=== PATIENT | female | born 1960 | race Caucasian/White ===

== ENCOUNTER 2017-07-21 22:42 | Emergency (ER) | payer OTHER ==
[~2017-07-21] VITALS: Ht 157.5 cm; Wt 54.4 kg
[2017-07-21 22:50] VITALS: BP_SYST 168
[2017-07-21] MEDS ORDERED: SULFAMETHOXAZOLE/TRIMETHOPR DS 1 TABLET PO ONE (23:15)
[2017-07-21] MEDS ORDERED: ACETAMINOPHEN 500 MG TABLET PO ONE (23:15)
[2017-07-21] MEDS ORDERED: AMOXICILLIN/CLAVULANATE POTASSIUM 875 MG TABLET PO ONE (23:15)
[2017-07-21] MEDS ORDERED: BACITRACIN 1 GM OINT TP ONE (23:30)
[2017-07-21 23:55] VITALS: BP_SYST 152
== END 2017-07-21 23:55 | disposition home or self-care (01) ==
LOC: SED 22:42
DX: N61.0 Mastitis without abscess (principal)
CPT/HCPCS: 99284

== ENCOUNTER 2023-08-18 12:44 | Emergency (ER) | payer OTHER ==
[2023-08-18] MEDS ORDERED: ONDANSETRON HCL 4 MG/2 ML VIAL ONE (13:21)
[2023-08-18 14:18] LABS: ACETONE, SERUM NEGATIVE (NEGATIVE)
[2023-08-18 14:22] LABS: ALANINE AMINOTRANSFERASE 24 U/L (12-78); ANION GAP 18 (5-15); ASPARTATE AMINOTRANSFERASE 88 U/L (10-37); CARBON DIOXIDE 24 mmol/L (23-29); CHLORIDE 99 mmol/L (98-107); CREATININE 0.61 mg/dL (0.55-1.30); GFR AFRICAN AMERICAN 128 mL/min (>90); GLUCOSE 160 mg/dL (74-106); POTASSIUM 3.3 mmol/L (3.5-5.1); SODIUM SERUM 141 mmol/L (136-145); TOTAL BILIRUBIN 1.8 mg/dL (0.0-1.0); TOTAL PROTEIN, SERUM 7.1 g/dL (6.4-8.3); UREA NITROGEN, BLOOD 31 mg/dL (8-21)
[2023-08-18 14:23] LABS: BASOPHILS # (AUTO) 0.1 K/uL (0.0-0.2); BASOPHILS % (AUTO) 1.1 % (0.0-2.0); HEMATOCRIT 31.6 % (36-48); HEMOGLOBIN 10.5 g/dL (12.0-16.0); LYMPHOCYTES # (AUTO) 0.4 K/uL (1.0-5.5); LYMPHOCYTES % (AUTO) 3.5 % (20.5-51.5); MEAN CORPUSCULAR HEMOGLOBIN 33 pg (27-31); MEAN CORPUSCULAR HGB CONC 33 % (32-36); MEAN CORPUSCULAR VOLUME 99 fL (79.0-98.0); MONOCYTES # (AUTO) 0.5 K/uL (0.0-1.0); MONOCYTES % (AUTO) 4.9 % (1.7-9.3); NEUTROPHILS # (AUTO) 10.1 K/uL (1.8-7.7); NEUTROPHILS % (AUTO) 90.5 % (40.0-70.0); PLATELET COUNT (AUTO) 121 K/uL (130-430); RED CELL DISTRIBUTION WIDTH 15.2 % (9.0-15.0); WHITE BLOOD COUNT (AUTO) 11.2 K/uL (4.8-10.8)
[2023-08-18 14:25] LABS: ALCOHOL, BLOOD 66 mg/dL (<10); AMYLASE 39 U/L (0-100); CREATINE KINASE, TOTAL 42 U/L (26-192); INR 1.4 (0.8-1.2); LIPASE 23 U/L (16-77); PROTHROMBIN TIME 14.1 SECS (9.5-12.5)
[2023-08-18] MEDS ORDERED: NACL 0.9% 1,000 ML IV ONE ×2 (14:30→15:00)
[2023-08-18] MEDS ORDERED: LORazepam 2 MG/ML VIAL IVP ONE (15:00)
[2023-08-18] MEDS ORDERED: LORA-259 PO ×3 (15:07→16:50)
[2023-08-18] MEDS ORDERED: OMEP20CA15 PO ×2 (15:07→16:09)
[2023-08-18 16:42] VITALS: BP_SYST 132; PULSE 102; RESP 20; TEMP 98.3; O2SAT 97
== END 2023-08-18 16:41 | disposition home or self-care (01) ==
LOC: SED 12:44
DX: K74.60 Unspecified cirrhosis of liver (principal); K92.0 Hematemesis; F10.10 Alcohol abuse, uncomplicated; Z79.899 Other long term (current) drug therapy; Y90.3 Blood alcohol level of 60-79 mg/100 ml
CPT/HCPCS: 99285; 74176; 96374; 71045; 96361; 80076; 80048; 82009; 82150; 82550; 83690; 85025; 85610; 85730; 86886; 86900; 86901; 84484; 36415; 76376; 83605; G0482; J2060; J2405; J7030

== ENCOUNTER 2024-03-31 23:34 | Inpatient (IN) | payer BC, OTHER ==
[~2024-03-31] VITALS: Ht 160 cm; Wt 55.3 kg
[~2024-03-31 23:34] MED LIST: LORA-259 PO; OMEP20CA15 PO
[2024-03-31] MEDS: NACL 0.9% 1,000 ML IV ONE (23:54)
[2024-03-31] MEDS: PANTOPRAZOLE SODIUM 40 MG/VIAL (PROTONIX) IVP ONE (23:55)
[2024-03-31 23:57] VITALS: BP_SYST 94; PULSE 155; RESP 18; TEMP 97.8; O2SAT 96
[2024-04-01] VITALS (10 sets, daily range): BP systolic 118–161; PULSE 78–138; RESP 20–38; TEMP 97.6–100.5; O2SAT 94–98
[2024-04-01 00:53] LABS: BASOPHILS % (AUTO) 0.2 % (0.0-2.0); LYMPHOCYTES # (AUTO) 1.1 K/uL (1.0-5.5); LYMPHOCYTES % (AUTO) 5.1 % (20.5-51.5); MEAN CORPUSCULAR HEMOGLOBIN 32 pg (27-31); MEAN CORPUSCULAR HGB CONC 33 % (32-36); MEAN CORPUSCULAR VOLUME 97 fL (79.0-98.0); MONOCYTES # (AUTO) 2.8 K/uL (0.0-1.0); MONOCYTES % (AUTO) 12.3 % (1.7-9.3); NEUTROPHILS # (AUTO) 18.5 K/uL (1.8-7.7); NEUTROPHILS % (AUTO) 82.4 % (40.0-70.0); PLATELET COUNT (AUTO) 142 K/uL (130-430); RED BLOOD CELL COUNT(AUTO) 2.21 MIL/uL (4.2-6.2); RED CELL DISTRIBUTION WIDTH 17.6 % (9.0-15.0); WHITE BLOOD COUNT (AUTO) 22.4 K/uL (4.8-10.8)
[2024-04-01 00:55] LABS: HEMATOCRIT 21.4 % (36-48)
[2024-04-01 00:57] LABS: ALANINE AMINOTRANSFERASE 239 U/L (12-78); ALBUMIN 2.9 g/dL (3.4-4.8); ANION GAP 29 (5-15); ASPARTATE AMINOTRANSFERASE 608 U/L (10-37); BILIRUBIN,DIRECT 1.2 mg/dL (0.0-0.3); CALCIUM 7.7 mg/dL (8.4-11.0); CARBON DIOXIDE 13 mmol/L (23-29); CHLORIDE 94 mmol/L (98-107); CREATININE 2.89 mg/dL (0.55-1.30); GFR AFRICAN AMERICAN 21 mL/min (>90); GLUCOSE 147 mg/dL (74-106); INR 1.7 (0.8-1.2); LIPASE 93 U/L (16-77); POTASSIUM 4.6 mmol/L (3.5-5.1); SODIUM SERUM 136 mmol/L (136-145); TOTAL BILIRUBIN 2.4 mg/dL (0.0-1.0); TOTAL PROTEIN, SERUM 6.5 g/dL (6.4-8.3); UREA NITROGEN, BLOOD 40 mg/dL (8-21)
[2024-04-01 01:10] LABS: ALCOHOL, BLOOD < 3 mg/dL (<10); GFR NON AFRICAN-AMERICAN 18 mL/min (>90)
[2024-04-01] MEDS: LORazepam 2 MG/ML VIAL IVP ONE (01:41)
[2024-04-01] MEDS ORDERED: LORazepam 2 MG/ML VIAL IM PRN (01:45)
[2024-04-01] MEDS: ONDANSETRON HCL 4 MG/2 ML VIAL IVP PRN (02:17)
[2024-04-01] MEDS ORDERED: chlordiazePOXIDE HCL 25 MG CAPSULE ONE (03:00)
[2024-04-01] MEDS: NACL 0.9% 1,000 ML IV SCH (03:05)
[2024-04-01] MEDS: chlordiazePOXIDE HCL 25 MG CAPSULE PO ONE (03:08)
[2024-04-01] MEDS ORDERED: METOPROLOL TARTRATE 5 MG/5 ML VIAL ONE (06:04)
[2024-04-01 06:40] LABS: BILIRUBIN,URINE NEGATIVE (NEGATIVE); BLOOD, URINE 3+ (NEGATIVE); CLARITY/URINE SL CLOUDY (CLEAR); COLOR,URINE YELLOW (YELLOW); GLUCOSE,URINE NEGATIVE (NEGATIVE); KETONES,URINE TRACE (NEGATIVE); LEUKOCYTE ESTERASE ,URINE TRACE (NEGATIVE); NITRITE, URINE NEGATIVE (NEGATIVE); PH,URINE 6.5 (5.0-8.0); PROTEIN URINE 2+ (NEGATIVE)
[2024-04-01] MEDS: METOPROLOL TARTRATE 5 MG/5 ML VIAL IVP ONE (06:49)
[2024-04-01 07:19] LABS: BARBITURATE, URINE NEGATIVE (NEG <=200); BENZODIAZEPINE, URINE POSITIVE (NEG <=150); CANNABINOID, URINE NEGATIVE (NEG <=50); COCAINE, URINE NEGATIVE (NEG <=150); METHAMPHETAMINES SCREEN,URINE NEGATIVE (NEG <=500); OPIATE, URINE NEGATIVE (NEG <=100); PHENCYCLIDINE SCREEN,URINE NEGATIVE (NEG <=25); UR TRICYCLIC ANTIDEPRESSANTS NEGATIVE (NEG <=300); URINE AMPHETAMINE NEGATIVE (NEG <=500); URINE METHADONE NEGATIVE (NEG <=200); URINE OXYCODONE SCREEN NEGATIVE (NEG <=100)
[2024-04-01 07:49] LABS: BACTERIA,URINE MANY /HPF (None Seen)
[2024-04-01] MEDS: NS 500 ML IV ONE (08:41)
[2024-04-01] MEDS: PIPERACILLIN/TAZO 3.375 GM in NS 50 ML IV ONE (08:42)
[2024-04-01] MEDS ORDERED: PIPERACILLIN/TAZOBACTAM 3.375 GM/VIAL (ZOSYN) IV ONE (08:45)
[2024-04-01] MEDS: LORazepam 2 MG/ML VIAL IM PRN (09:00)
[2024-04-01] MEDS: PANTOPRAZOLE SODIUM 40 MG/VIAL (PROTONIX) IVP SCH ×2 (09:08→21:03)
[2024-04-01 09:21] LABS: BASOPHILS % (AUTO) 0.1 % (0.0-2.0); LYMPHOCYTES % (AUTO) 5.6 % (20.5-51.5); MEAN CORPUSCULAR HEMOGLOBIN 31 pg (27-31); MEAN CORPUSCULAR HGB CONC 33 % (32-36); MEAN CORPUSCULAR VOLUME 94 fL (79.0-98.0); MONOCYTES # (AUTO) 2.3 K/uL (0.0-1.0); MONOCYTES % (AUTO) 13.3 % (1.7-9.3); PLATELET COUNT (AUTO) 63 K/uL (130-430); RED BLOOD CELL COUNT(AUTO) 2.17 MIL/uL (4.2-6.2); RED CELL DISTRIBUTION WIDTH 16.3 % (9.0-15.0); WHITE BLOOD COUNT (AUTO) 17.2 K/uL (4.8-10.8)
[2024-04-01 09:33] LABS: HEMATOCRIT 20.4 % (36-48); HEMOGLOBIN 6.7 g/dL (12.0-16.0)
[2024-04-01 09:47] LABS: ALBUMIN 2.4 g/dL (3.4-4.8); CREATININE 2.99 mg/dL (0.55-1.30); TOTAL PROTEIN, SERUM 5.5 g/dL (6.4-8.3)
[2024-04-01] MEDS: MULTIVITAMINS TAB 1 TABLET PO SCH (09:51)
[2024-04-01 09:56] LABS: CALCIUM 6.7 mg/dL (8.4-11.0); POTASSIUM 5.8 mmol/L (3.5-5.1)
[2024-04-01 09:57] LABS: TOTAL BILIRUBIN 3.2 mg/dL (0.0-1.0)
[2024-04-01] MEDS ORDERED: CALCIUM GLUCONATE 1 GM/10 ML VIAL IVP ONE (10:15)
[2024-04-01] MEDS ORDERED: PANTOPRAZOLE SODIUM 40 MG/VIAL (PROTONIX) IVP ONE (10:30)
[2024-04-01] MEDS ORDERED: CALCIUM GLUCONATE 1 GM/10 ML VIAL IV ONE (10:30)
[2024-04-01] MEDS: INSULIN REGULAR, HUMAN 10 UNITS/0.1 ML, 3 ML VIAL IVP ONE (10:38)
[2024-04-01] MEDS: DEXTROSE 50% JECT 50 ML DISP.SYRIN IVP ONE (10:41)
[2024-04-01] MEDS: LACTULOSE 20 GM/30 ML UDC PO ONE (12:48)
[2024-04-01] MEDS: CALCIUM GLUC 1 GM/100ML-NACL 100 ML IV ONE (12:52)
[2024-04-01] MEDS: OCTREOTIDE ACETATE 1,250 MCG in NS 248.75 ML IV SCH (13:50)
[2024-04-01] MEDS: PIPERACILLIN/TAZOBACTAM 2.25 GM in D5W 50 ML IV SCH (14:00)
[2024-04-01] MEDS: chlordiazePOXIDE HCL 25 MG CAPSULE PO SCH (15:00)
[2024-04-01 19:34] LABS: ALBUMIN 2.6 g/dL (3.4-4.8); CALCIUM 7.1 mg/dL (8.4-11.0); CREATININE 2.99 mg/dL (0.55-1.30); POTASSIUM 5.3 mmol/L (3.5-5.1); TOTAL BILIRUBIN 3.7 mg/dL (0.0-1.0); TOTAL PROTEIN, SERUM 5.7 g/dL (6.4-8.3)
[2024-04-01] MEDS: LACTULOSE 20 GM/30 ML UDC PO SCH (21:00)
[2024-04-01] MEDS: PIPERACILLIN/TAZOBACTAM 3.375 GM/VIAL (ZOSYN) IV ONE (22:41)
[2024-04-01] MEDS: PIPERACILLIN/TAZOBACTAM 2.25 GM VIAL IV ONE (23:56)
[2024-04-02] VITALS (23 sets, daily range): BP systolic 125–170; PULSE 95–134; RESP 16–31; TEMP 98.4–100.5; O2SAT 93–100
[2024-04-02 04:52] LABS: BASOPHILS % (AUTO) 0.1 % (0.0-2.0); HEMATOCRIT 25.1 % (36-48); HEMOGLOBIN 8.6 g/dL (12.0-16.0); LYMPHOCYTES # (AUTO) 0.6 K/uL (1.0-5.5); LYMPHOCYTES % (AUTO) 5.3 % (20.5-51.5); MEAN CORPUSCULAR HEMOGLOBIN 30 pg (27-31); MEAN CORPUSCULAR HGB CONC 34 % (32-36); MEAN CORPUSCULAR VOLUME 89 fL (79.0-98.0); MONOCYTES # (AUTO) 1.1 K/uL (0.0-1.0); MONOCYTES % (AUTO) 9.4 % (1.7-9.3); NEUTROPHILS % (AUTO) 85.2 % (40.0-70.0); RED BLOOD CELL COUNT(AUTO) 2.82 MIL/uL (4.2-6.2); WHITE BLOOD COUNT (AUTO) 11.8 K/uL (4.8-10.8)
[2024-04-02 07:06] LABS: PLATELET COUNT (AUTO) 43 K/uL (130-430)
[2024-04-02 07:52] LABS: CALCIUM 7.2 mg/dL (8.4-11.0); CREATININE 3.06 mg/dL (0.55-1.30)
[2024-04-02 08:55] LABS: INR 2.1 (0.8-1.2); PROTHROMBIN TIME 20.6 SECS (9.5-12.5)
[2024-04-02] MEDS: PANTOPRAZOLE SODIUM 80 MG in NS 100 ML IV ONE (09:22)
[2024-04-02] MEDS: PANTOPRAZOLE SODIUM 40 MG in NS 50 ML IV SCH (10:38)
[2024-04-02] MEDS ORDERED: PHYTONADIONE 10 MG/ML AMP IV ONE (11:00)
[2024-04-02] MEDS: MIDAZOLAM HCL 5 MG/5 ML VIAL ONE (11:44)
[2024-04-02] MEDS: MEPERIDINE 100 MG INJ. 100 MG/ML VIAL ONE (11:46)
[2024-04-02 12:58] LABS: CREATINE KINASE, TOTAL 103 U/L (26-192)
[2024-04-02 13:10] LABS: LACTATE DEHYDROGENASE 1442 U/L (81-234)
[2024-04-02] MEDS: PHYTONADIONE 10 MG in NS 50 ML SUBCUT ONE (13:41)
[2024-04-02] MEDS: CALCIUM GLUCONATE 1 GM/10 ML VIAL IVP ONE (14:55)
[2024-04-02 21:01] LABS: HEMOGLOBIN 7.4 g/dL (12.0-16.0)
[2024-04-02 21:10] LABS: HEMATOCRIT 21.2 % (36-48)
[2024-04-03] VITALS (26 sets, daily range): BP systolic 134–167; PULSE 80–110; RESP 13–28; TEMP 98–98.7; O2SAT 90–100
[2024-04-03 05:05] LABS: ALBUMIN 2.6 g/dL (3.4-4.8); BILIRUBIN,DIRECT 2.5 mg/dL (0.0-0.3); CREATININE 2.71 mg/dL (0.55-1.30); POTASSIUM 3.1 mmol/L (3.5-5.1); TOTAL BILIRUBIN 3.8 mg/dL (0.0-1.0); TOTAL PROTEIN, SERUM 5.9 g/dL (6.4-8.3)
[2024-04-03 05:55] LABS: EOSINOPHILS # (AUTO) 0.1 K/uL (0.0-0.4); EOSINOPHILS % (AUTO) 0.9 % (0.0-4.0); HEMOGLOBIN 7.5 g/dL (12.0-16.0); LYMPHOCYTES # (AUTO) 0.5 K/uL (1.0-5.5); MONOCYTES # (AUTO) 0.6 K/uL (0.0-1.0); RED BLOOD CELL COUNT(AUTO) 2.42 MIL/uL (4.2-6.2)
[2024-04-03 06:09] LABS: BASOPHILS % (AUTO) 0.2 % (0.0-2.0); HEMATOCRIT 22.1 % (36-48); LYMPHOCYTES % (AUTO) 6.5 % (20.5-51.5); MEAN CORPUSCULAR HEMOGLOBIN 31 pg (27-31); MEAN CORPUSCULAR HGB CONC 34 % (32-36); MEAN CORPUSCULAR VOLUME 91 fL (79.0-98.0); MONOCYTES % (AUTO) 8.1 % (1.7-9.3); NEUTROPHILS # (AUTO) 6.4 K/uL (1.8-7.7); NEUTROPHILS % (AUTO) 84.3 % (40.0-70.0); RED CELL DISTRIBUTION WIDTH 16.9 % (9.0-15.0); WHITE BLOOD COUNT (AUTO) 7.6 K/uL (4.8-10.8)
[2024-04-03 06:12] LABS: PLATELET COUNT (AUTO) 46 K/uL (130-430)
[2024-04-03] MEDS ORDERED: KCL 40 mEq in 100 mL (PREMIX) 100 ML IV ONE (08:00)
[2024-04-03 08:43] LABS: BASOPHILS % (AUTO) 0.2 % (0.0-2.0); EOSINOPHILS # (AUTO) 0.1 K/uL (0.0-0.4); EOSINOPHILS % (AUTO) 1.1 % (0.0-4.0); HEMATOCRIT 23.7 % (36-48); HEMOGLOBIN 8.1 g/dL (12.0-16.0); LYMPHOCYTES # (AUTO) 0.5 K/uL (1.0-5.5); LYMPHOCYTES % (AUTO) 6.4 % (20.5-51.5); MEAN CORPUSCULAR HEMOGLOBIN 31 pg (27-31); MEAN CORPUSCULAR HGB CONC 34 % (32-36); MEAN CORPUSCULAR VOLUME 92 fL (79.0-98.0); MONOCYTES # (AUTO) 0.7 K/uL (0.0-1.0); MONOCYTES % (AUTO) 8.6 % (1.7-9.3); NEUTROPHILS # (AUTO) 6.6 K/uL (1.8-7.7); NEUTROPHILS % (AUTO) 83.7 % (40.0-70.0); RED BLOOD CELL COUNT(AUTO) 2.58 MIL/uL (4.2-6.2); RED CELL DISTRIBUTION WIDTH 16.9 % (9.0-15.0); WHITE BLOOD COUNT (AUTO) 7.9 K/uL (4.8-10.8)
[2024-04-03 08:55] LABS: PLATELET COUNT (AUTO) 45 K/uL (130-430)
[2024-04-03 09:05] LABS: ALBUMIN 2.7 g/dL (3.4-4.8); CALCIUM 7.4 mg/dL (8.4-11.0); CREATININE 2.77 mg/dL (0.55-1.30); POTASSIUM 3.1 mmol/L (3.5-5.1); TOTAL BILIRUBIN 4.3 mg/dL (0.0-1.0); TOTAL PROTEIN, SERUM 6.2 g/dL (6.4-8.3)
[2024-04-03] MEDS: CALCIUM GLUC 1 GM/100ML-NACL 100 ML IV ONE (09:23)
[2024-04-03] MEDS: KCL 20 mEq in 100 mL (PREMIX) 100 ML IV SCH (09:23)
[2024-04-03] MEDS: CALCIUM GLUCONATE IV ONE (09:23)
[2024-04-03] MEDS: SODIUM CHLORIDE IV ONE (09:23)
[2024-04-03 11:57] LABS: URINE SODIUM, RANDOM 60 mmol/L (40-220)
[2024-04-03] MEDS: PHYTONADIONE 10 MG in NS 50 ML IV ONE (17:21)
[2024-04-03] MEDS: RIFAXIMIN 550 MG TABLET PO SCH (21:33)
[2024-04-03] MEDS: PANTOPRAZOLE SODIUM 40 MG/VIAL (PROTONIX) IVP SCH (21:33)
[2024-04-03] MEDS: PROPRANOLOL HCL 10 MG TABLET (INDERAL) PO SCH (21:34)
[2024-04-04] VITALS: BP_SYST 155; PULSE 81; RESP 25; TEMP 98.3; O2SAT 100
[2024-04-04 07:45] VITALS: BP_SYST 158; PULSE 102; RESP 18; TEMP 97.4; O2SAT 94
[2024-04-04 08:19] LABS: BASOPHILS % (AUTO) 0.3 % (0.0-2.0); EOSINOPHILS # (AUTO) 0.4 K/uL (0.0-0.4); EOSINOPHILS % (AUTO) 3.6 % (0.0-4.0); HEMATOCRIT 26.2 % (36-48); HEMOGLOBIN 8.9 g/dL (12.0-16.0); LYMPHOCYTES # (AUTO) 0.5 K/uL (1.0-5.5); LYMPHOCYTES % (AUTO) 4.6 % (20.5-51.5); MEAN CORPUSCULAR HEMOGLOBIN 31 pg (27-31); MEAN CORPUSCULAR HGB CONC 34 % (32-36); MEAN CORPUSCULAR VOLUME 93 fL (79.0-98.0); MONOCYTES # (AUTO) 1.2 K/uL (0.0-1.0); MONOCYTES % (AUTO) 11.6 % (1.7-9.3); NEUTROPHILS # (AUTO) 8.4 K/uL (1.8-7.7); NEUTROPHILS % (AUTO) 79.9 % (40.0-70.0); PLATELET COUNT (AUTO) 69 K/uL (130-430); RED BLOOD CELL COUNT(AUTO) 2.82 MIL/uL (4.2-6.2); RED CELL DISTRIBUTION WIDTH 17.4 % (9.0-15.0); WHITE BLOOD COUNT (AUTO) 10.6 K/uL (4.8-10.8)
[2024-04-04 08:21] LABS: INR 1.4 (0.8-1.2); PROTHROMBIN TIME 13.8 SECS (9.5-12.5)
[2024-04-04 08:24] LABS: TOTAL IRON BIND. CAPACITY 268 ug/dL (250-450)
[2024-04-04 08:25] LABS: ALBUMIN 2.9 g/dL (3.4-4.8); CALCIUM 7.7 mg/dL (8.4-11.0); CREATININE 2.63 mg/dL (0.55-1.30); POTASSIUM 3.3 mmol/L (3.5-5.1); TOTAL BILIRUBIN 6.3 mg/dL (0.0-1.0); TOTAL PROTEIN, SERUM 6.8 g/dL (6.4-8.3)
[2024-04-04 08:55] VITALS: O2SAT 98
[2024-04-04] MEDS: cefTRIAXone 1 GM in D5W 50 ML IV SCH (10:15)
[2024-04-04 11:03] VITALS: BP_SYST 147; PULSE 99; RESP 16; TEMP 97.5; O2SAT 94
[2024-04-04] MEDS: KCL 20 mEq in 100 mL (PREMIX) 100 ML IV ONE (12:01)
[2024-04-04] MEDS ORDERED: chlordiazePOXIDE HCL 25 MG CAPSULE PO SCH (15:00)
[2024-04-04 16:07] VITALS: BP_SYST 144; PULSE 89; RESP 16; TEMP 97.6; O2SAT 95
[2024-04-04 20:00] VITALS: BP_SYST 139; PULSE 86; RESP 20; TEMP 99.6; O2SAT 95
[2024-04-05 00:39] VITALS: BP_SYST 133; PULSE 87; RESP 18; TEMP 98.1; O2SAT 98
[2024-04-05] MEDS: LORazepam 2 MG/ML VIAL IVP PRN (04:00)
[2024-04-05 06:17] LABS: BASOPHILS % (AUTO) 0.3 % (0.0-2.0); EOSINOPHILS # (AUTO) 0.3 K/uL (0.0-0.4); EOSINOPHILS % (AUTO) 3.6 % (0.0-4.0); HEMATOCRIT 26.6 % (36-48); HEMOGLOBIN 8.9 g/dL (12.0-16.0); LYMPHOCYTES # (AUTO) 0.5 K/uL (1.0-5.5); LYMPHOCYTES % (AUTO) 5.3 % (20.5-51.5); MEAN CORPUSCULAR HEMOGLOBIN 32 pg (27-31); MEAN CORPUSCULAR HGB CONC 34 % (32-36); MEAN CORPUSCULAR VOLUME 94 fL (79.0-98.0); MONOCYTES # (AUTO) 1.7 K/uL (0.0-1.0); MONOCYTES % (AUTO) 17.7 % (1.7-9.3); NEUTROPHILS # (AUTO) 7.1 K/uL (1.8-7.7); NEUTROPHILS % (AUTO) 73.1 % (40.0-70.0); PLATELET COUNT (AUTO) 71 K/uL (130-430); RED BLOOD CELL COUNT(AUTO) 2.82 MIL/uL (4.2-6.2); WHITE BLOOD COUNT (AUTO) 9.7 K/uL (4.8-10.8)
[2024-04-05 06:50] LABS: ALBUMIN 2.8 g/dL (3.4-4.8); BILIRUBIN,DIRECT 3.1 mg/dL (0.0-0.3); TOTAL BILIRUBIN 4.9 mg/dL (0.0-1.0); TOTAL PROTEIN, SERUM 6.6 g/dL (6.4-8.3)
[2024-04-05 08:00] VITALS: BP_SYST 158; PULSE 89; RESP 16; TEMP 98.5; O2SAT 98
[2024-04-05 11:10] VITALS: BP_SYST 141; PULSE 86; RESP 16; TEMP 97.7; O2SAT 96
[2024-04-05 19:00] VITALS: O2SAT 96
[2024-04-05 20:00] VITALS: BP_SYST 150; PULSE 85; RESP 17; TEMP 98.6; O2SAT 95
[2024-04-06 00:04] VITALS: BP_SYST 139; PULSE 84; RESP 16; TEMP 97; O2SAT 96
[2024-04-06 04:00] VITALS: BP_SYST 151; PULSE 78; RESP 22; TEMP 98; O2SAT 97
[2024-04-06 06:44] LABS: BASOPHILS % (AUTO) 0.4 % (0.0-2.0); EOSINOPHILS # (AUTO) 0.4 K/uL (0.0-0.4); EOSINOPHILS % (AUTO) 4.7 % (0.0-4.0); HEMATOCRIT 25.6 % (36-48); HEMOGLOBIN 8.6 g/dL (12.0-16.0); LYMPHOCYTES # (AUTO) 0.6 K/uL (1.0-5.5); LYMPHOCYTES % (AUTO) 6.2 % (20.5-51.5); MEAN CORPUSCULAR HEMOGLOBIN 31 pg (27-31); MEAN CORPUSCULAR HGB CONC 34 % (32-36); MEAN CORPUSCULAR VOLUME 92 fL (79.0-98.0); MONOCYTES % (AUTO) 21.4 % (1.7-9.3); NEUTROPHILS # (AUTO) 6.3 K/uL (1.8-7.7); PLATELET COUNT (AUTO) 99 K/uL (130-430); RED BLOOD CELL COUNT(AUTO) 2.77 MIL/uL (4.2-6.2); RED CELL DISTRIBUTION WIDTH 17.6 % (9.0-15.0); WHITE BLOOD COUNT (AUTO) 9.4 K/uL (4.8-10.8)
[2024-04-06 06:49] LABS: ALBUMIN 2.7 g/dL (3.4-4.8); BILIRUBIN,DIRECT 2.5 mg/dL (0.0-0.3); CALCIUM 7.6 mg/dL (8.4-11.0); CREATININE 2.4 mg/dL (0.55-1.30); TOTAL BILIRUBIN 3.9 mg/dL (0.0-1.0); TOTAL PROTEIN, SERUM 6.5 g/dL (6.4-8.3)
[2024-04-06 08:33] VITALS: BP_SYST 127; PULSE 82; RESP 18; TEMP 98.4; O2SAT 97
[2024-04-06 10:22] LABS: NEUTROPHILS % (AUTO) 67.3 % (40.0-70.0)
[2024-04-06 11:03] VITALS: BP_SYST 140; PULSE 80; RESP 16; TEMP 98.9; O2SAT 96
[2024-04-06] MEDS: POTASSIUM CHLORIDE 20 MEQ/PKT PACKET PO ONE (12:42)
[2024-04-06 15:22] VITALS: BP_SYST 147; PULSE 79; RESP 16; TEMP 98.6; O2SAT 96
[2024-04-06 20:00] VITALS: BP_SYST 134; PULSE 81; RESP 20; TEMP 98.7; O2SAT 97
[2024-04-07 00:39] VITALS: BP_SYST 149; PULSE 83; RESP 16; TEMP 97.8; O2SAT 96
[2024-04-07 04:00] VITALS: BP_SYST 145; PULSE 82; RESP 19; TEMP 98.6; O2SAT 98
[2024-04-07 06:50] LABS: BASOPHILS % (AUTO) 0.8 % (0.0-2.0); EOSINOPHILS # (AUTO) 0.3 K/uL (0.0-0.4); EOSINOPHILS % (AUTO) 5.3 % (0.0-4.0); HEMOGLOBIN 8.6 g/dL (12.0-16.0); LYMPHOCYTES # (AUTO) 0.5 K/uL (1.0-5.5); LYMPHOCYTES % (AUTO) 8.7 % (20.5-51.5); MEAN CORPUSCULAR HEMOGLOBIN 31 pg (27-31); MEAN CORPUSCULAR HGB CONC 33 % (32-36); MEAN CORPUSCULAR VOLUME 93 fL (79.0-98.0); MONOCYTES # (AUTO) 1.2 K/uL (0.0-1.0); MONOCYTES % (AUTO) 22.3 % (1.7-9.3); NEUTROPHILS # (AUTO) 3.3 K/uL (1.8-7.7); NEUTROPHILS % (AUTO) 62.9 % (40.0-70.0); PLATELET COUNT (AUTO) 92 K/uL (130-430); RED BLOOD CELL COUNT(AUTO) 2.78 MIL/uL (4.2-6.2); RED CELL DISTRIBUTION WIDTH 17.5 % (9.0-15.0); WHITE BLOOD COUNT (AUTO) 5.3 K/uL (4.8-10.8)
[2024-04-07 07:32] LABS: ALBUMIN 2.4 g/dL (3.4-4.8); BILIRUBIN,DIRECT 1.9 mg/dL (0.0-0.3); CALCIUM 7.5 mg/dL (8.4-11.0); CREATININE 2.29 mg/dL (0.55-1.30); POTASSIUM 3.3 mmol/L (3.5-5.1); TOTAL PROTEIN, SERUM 5.9 g/dL (6.4-8.3)
[2024-04-07 08:00] VITALS: BP_SYST 153; PULSE 85; RESP 18; TEMP 98.2; O2SAT 97; O2SAT 98
[2024-04-07] MEDS: MORPHINE 2 MG/ML INJ. SYRINGE IVP PRN (10:36)
[2024-04-07] MEDS ORDERED: PROP10TA10 PO (10:38)
[2024-04-07] MEDS ORDERED: RIFA550T5 PO (10:38)
[2024-04-07 11:13] VITALS: BP_SYST 145; PULSE 81; RESP 17; TEMP 98; O2SAT 99
[2024-04-07 16:28] VITALS: BP_SYST 132; PULSE 63; RESP 18; TEMP 96.3; O2SAT 98
[2024-05-09] MEDS ORDERED: LORazepam 2 MG/ML VIAL IVP PRN (09:00)
== END 2024-04-07 17:00 | disposition home health service (06) | DRG 871 ==
LOC: SED 23:34 → STU 04-01 01:45 → SIC 04-01 05:43 → STU 04-04 00:23 → SMU 04-04 13:19
PROVIDERS: ADMIT Student in an Organized Health Care Education/Training Program; ATTEND Student in an Organized Health Care Education/Training Program
PROC: 30233K1 Transfusion of Nonautologous Frozen Plasma into Peripheral Vein, Percutaneous Approach (ICD-10-PCS; 2024-04-01)
PROC: 30233N1 Transfusion of Nonautologous Red Blood Cells into Peripheral Vein, Percutaneous Approach (ICD-10-PCS; 2024-04-01)
PROC: 30233R1 Transfusion of Nonautologous Platelets into Peripheral Vein, Percutaneous Approach (ICD-10-PCS; 2024-04-02)
PROC: 0DB68ZX Excision of Stomach, Via Natural or Artificial Opening Endoscopic, Diagnostic (ICD-10-PCS; principal; 2024-04-02 15:30)
DX: A41.9 Sepsis, unspecified organism (principal); G93.41 Metabolic encephalopathy; J96.01 Acute respiratory failure with hypoxia; R57.8 Other shock; K20.91 Esophagitis, unspecified with bleeding; K29.71 Gastritis, unspecified, with bleeding; N17.0 Acute kidney failure with tubular necrosis; D68.9 Coagulation defect, unspecified; N39.0 Urinary tract infection, site not specified; E87.5 Hyperkalemia; D69.6 Thrombocytopenia, unspecified; E87.6 Hypokalemia; I10 Essential (primary) hypertension; K76.82 Hepatic encephalopathy; D64.9 Anemia, unspecified; K70.30 Alcoholic cirrhosis of liver without ascites; N28.89 Other specified disorders of kidney and ureter; K44.9 Diaphragmatic hernia without obstruction or gangrene; F10.10 Alcohol abuse, uncomplicated; Y90.9 Presence of alcohol in blood, level not specified; Z79.899 Other long term (current) drug therapy
CPT/HCPCS: 36415; 43239; 71045; 76770; 80048; 80053; 80076; 80307; 81000; 81001; 81015; 82140; 82272; 82550; 82570; 82948; 83010; 83540; 83550; 83605; 83615; 83690; 83880; 84302; 84484; 85018; 85025; 85384; 85610; 85730; 86886; 86900; 86901; 86920; 87040; 87081; 87086; 87186; 92610-GN; 93005; 93306; 94070; 96375; 97116-GP; 97530-GP; 99291; G0482; J0610; J0696; J1815; J2060; J2175; J2250; J2270; J2405; J2470; J2543; J3430; J3480; J3490; J7050; J7060; P9021; P9034; P9059